=== PATIENT | female | born 1950 | race Caucasian/White ===

== ENCOUNTER 2017-01-02 10:08 | Emergency (ER) | payer OTHER ==
[~2017-01-02] VITALS: Ht 162.6 cm; Wt 92.5 kg
[~2017-01-02 10:08] MED LIST: ACET500C5 PO; AMLO2.5T78 PO; ASPI-535; ATOR20TA38 PO; AZIT250T94; BENA40TA41; CALC1TAB79 PO; CIPR500T4 PO; DICL50TA11; DOCU-144 PO; ESOM40CA; FER325 PO; GABA100C14 PO; HYDR-902 PO; HYDR1CAP; INSU100C SC; INSU100V18; LANS30CA PO; LANT3I SC; LEVEM; LEVO125T75 PO; LEVO137T7; LOSA100T7 PO; MECL12.574 PO; METF500T4; MTF1000T PO; OMEP10CA4; SIMV40TA3; SITA50TA2 PO; TOFA5TAB PO; TRAM50TA2 PO
[2017-01-02 10:19] VITALS: Ht 162.6 cm; Wt 92.5 kg
[2017-01-02] MEDS ORDERED: morphine 4 MG/ML VIAL IV STA (11:15)
[2017-01-02] MEDS ORDERED: ONDANSETRON 4 MG INJ IV STA (11:15)
[2017-01-02] MEDS ORDERED: SOD CHLORIDE 0.9% 1,000 ML IV STA (11:15)
--- NOTE | 2017-01-02 11:30 | ERA ---
ER Documentation Chief Complaint Date/Time DATE: 01/02/17 TIME: 11:27 Chief Complaint RUQ PAIN RADIATES TO THE BACK X 3 DAYS HPI This is a 66-year-old female with prior history of cholecystectomy, prior liver tumor removal several years ago who presents with right upper quadrant abdominal pain for 3 days. The patient describes abdominal pain that slightly radiates to the right flank for approximately 3 days. No fevers or chills, no chest pain, no pleuritic pain, no dysuria urgency or frequency. She denies any cough. ROS All systems reviewed and are negative except as per history of present illness. Medications Home Meds Active Scripts Dicyclomine Hcl* (Bentyl*) 10 Mg Capsule, 10 MG PO QID Y for abdominal cramping , #30 CAP Prov:JOSE CURRY MD 01/02/17 Ondansetron (Ondansetron Odt) 4 Mg Tab.rapdis, 4 MG PO Q6H Y for NAUSEA AND/OR VOMITING, #10 TAB Prov:JOSE CURRY MD 01/02/17 Docusate Sodium* (Colace*) 100 Mg Capsule, 100 MG PO TID, #30 CAP Prov:LINDY CASTRO MD 06/20/16 Ciprofloxacin Hcl* (Ciprofloxacin Hcl*) 500 Mg Tablet, 500 MG PO BID for 7 Days , TAB Prov:LINDY CASTRO MD 06/20/16 Hydrocodone/Acetaminophen ([place] 10-325 Tablet) 1 Each Tablet, 1 TAB PO Q6H Y for PAIN, #16 TAB Prov:LINDY CASTRO MD 06/20/16 Reported Medications Calcium Carbonate/Vitamin D3 (Oysco 500+D Tablet) 1 Each Tablet, 1 EACH PO DAILY , TAB 06/20/16 Ferrous Sulfate* (Ferrous Sulfate*) 325 Mg Tabec, 325 MG PO DAILY, TAB 06/20/16 Tofacitinib Citrate (XELJANZ) 5 Mg Tablet, 5 MG PO BID, TAB 06/20/16 Atorvastatin Calcium* (Atorvastatin Calcium*) 20 Mg Tablet, 20 MG PO QHS, #30 TAB 06/20/16 Sitagliptin* (Januvia*) 50 Mg Tablet, 50 MG PO DAILY, #30 TAB 06/20/16 Gabapentin* (Gabapentin*) 100 Mg Capsule, 100 MG PO TID, #90 CAP 06/20/16 Losartan Potassium* (Losartan Potassium*) 100 Mg Tablet, 100 MG PO DAILY, TAB 02/08/15 Lansoprazole* (Lansoprazole*) 30 Mg Capsule.dr, 30 MG PO DAILY, CAP 02/08/15 Amlodipine Besylate* (Amlodipine Besylate*) 2.5 Mg Tablet, 2.5 MG PO DAILY, TAB 02/08/15 Levothyroxine Sodium* (Levothyroxine Sodium*) 125 Mcg Tablet, 125 MCG PO AC BREAKFAST, TAB 02/08/15 Insulin Glargine* (Lantus*) 100 Unit/Ml Soln, 44 UNIT SC HS, EA 02/08/15 Insulin Lispro (Humalog) 100 U/Ml Cartridge, 15 UNITS SC TID, EA BEFORE MEALS 02/08/15 Metformin* (Glucophage*) 1,000 Mg Tablet, 1000 MG PO BID, TAB 02/08/15 Discontinued Scripts Acetaminophen* (Tylophen*) 500 Mg Capsule, 1 CAP PO Q6H Y for PAIN AND OR ELEVATED TEMP, #30 CAP Prov:THEODORA MCCLELLAN PA-C 08/25/16 Meclizine Hcl* (Antivert*) 12.5 Mg Tab, 12.5 MG PO Q6H Y for DIZZINESS, #20 TAB Prov:THEODORA MCCLELLAN PA-C 08/25/16 Tramadol HCl (Tramadol HCl) 50 Mg Tablet, 50 MG PO Q4 Y for PAIN, #30 TAB Prov:THEODORA MCCLELLAN PA-C 08/25/16 Tramadol HCl (Tramadol HCl) 50 Mg Tablet, 50 MG PO Q4 Y for PAIN, #20 TAB Prov:GE CHEW 07/07/16 Allergies Allergies: Coded Allergies: ibuprofen (Verified Allergy, Mild, RASH, 01/02/17) PMhx/Soc History of Surgery: Yes (GALLBLADDER REMOVED, HYSTERECTOMY, , THYROID REMOVED) Anesthesia Reaction: No Hx Neurological Disorder: No Hx Respiratory Disorders: No Hx Cardiac Disorders: Yes (HTN, HIGH CHOLESTEROL) Hx Psychiatric Problems: No Hx Miscellaneous Medical Probl: Yes (HYPOTHYROID, DM, TUMOR REMOVED FROM LIVER) Hx Alcohol Use: No Hx Substance Use: No Hx Tobacco Use: No FmHx Family History: No diabetes Physical Exam Vitals Vital Signs Date Time Temp Pulse Resp B/P Pulse Ox O2 Delivery O2 Flow Rate FiO2 01/02/17 12:37 98.1 74 16 122/65 97 01/02/17 10:19 98.1 78 19 147/66 97 Physical Exam General: Well developed, well nourished, no acute distress Head: Normocephalic, atraumatic. Eyes: Pupils equally reactive, EOM intact ENT: Moist mucous membranes Neck: Supple, no lymphadenopathy Respiratory: Lungs clear bilaterally, no distress Cardiovascular: RRR, no murmurs, rubs, or gallops Abdominal: Soft, tenderness to the epigastrium and right upper quadrant without rebound or guarding : Deferred MSK: No edema, no unilateral swelling, 5/5 strength Neurologic: Alert and oriented, moving all extremities, normal speech, no focal weakness, no cerebellar signs Skin: No rash Psych: Normal mood Result Diagram: 01/02/17 1125 01/02/17 1125 Results 24 hrs Laboratory Tests Test 01/02/17 11:25 White Blood Count 8.710^3/ul Red Blood Count 4.1810^6/ul Hemoglobin 12.6g/dl Hematocrit 39.5% Mean Corpuscular Volume 94.5fl Mean Corpuscular Hemoglobin 30.1pg Mean Corpuscular Hemoglobin Concent 31.9g/dl Red Cell Distribution Width 14.6% Platelet Count 21694^3/UL Mean Platelet Volume 11.7fl Neutrophils % 72.1% Lymphocytes % 20.2% Monocytes % 6.2% Eosinophils % 0.8% Basophils % 0.1% Nucleated Red Blood Cells % 0.0/100WBC Neutrophils # 6.310^3/ul Lymphocytes # 1.810^3/ul Monocytes # 0.510^3/ul Eosinophils # 0.110^3/ul Basophils # 0.010^3/ul Nucleated Red Blood Cells # 0.010^3/ul Prothrombin Time 12.3Sec Prothrombin Time Ratio 1.0 INR International Normalized Ratio 0.91 Activated Partial Thromboplast Time 24.5Sec Urine Color LT. YELLOW Urine Clarity CLEAR Urine pH 5.5 Urine Specific [place] 1.025 Urine Ketones NEGATIVE Urine Nitrite NEGATIVE Urine Bilirubin NEGATIVE Urine Urobilinogen 0.2 E.U./dL Urine Leukocyte Esterase NEGATIVE Urine Hemoglobin NEGATIVE Urine Glucose NEGATIVE% Urine Total Protein NEGATIVE Sodium Level 143mmol/L Potassium Level 4.0mmol/L Chloride Level 100mmol/L Carbon Dioxide Level 27mmol/L Anion Gap 20 Blood Urea Nitrogen 21mg/dl Creatinine 0.89mg/dl Glucose Level 219mg/dl Calcium Level 9.3mg/dl Total Bilirubin 0.4mg/dl Direct Bilirubin 0.00mg/dl Indirect Bilirubin 0.4mg/dl Aspartate Amino Transf (AST/SGOT) 36IU/L Alanine Aminotransferase (ALT/SGPT) 52IU/L Alkaline Phosphatase 73IU/L Total Protein 8.1g/dl Albumin 4.3g/dl Globulin 3.80g/dl Albumin/Globulin Ratio 1.13 Lipase 159U/L Current Medications Medications (Trade) Dose Ordered Sig/Aisha Route PRN Reason Start Time Stop Time Status Last Admin Dose Admin Sodium Chloride (NS) 1,000 ml @ 1,000 mls/hr Q1H STAT IV 01/02/17 11:15 01/02/17 12:14 DC 01/02/17 11:40 Morphine Sulfate (morphine) 4 mg ONCE STAT IV 01/02/17 11:15 01/02/17 11:17 DC 01/02/17 11:40 Ondansetron HCl (Zofran Inj) 4 mg ONCE STAT IV 01/02/17 11:15 01/02/17 11:17 DC 01/02/17 11:39 Procedures/MDM EKG, MONITORS, & DIAGNOSTIC IMAGING: CT abdomen and pelvis: IMPRESSION: 1. No acute abnormality or findings to suggest a source of the patient's symptoms. 2. Sigmoid and descending colonic diverticulosis. 3. Similar postoperative change at the posterior right hepatic lobe with benign hepatic cysts. 4. Multivessel coronary artery calcifications and atherosclerotic changes of the aorta. 5. Mild cardiomegaly, unchanged. RPTAT: HLBP EKG: I reviewed and interpreted a 12-lead EKG. Rhythm: Normal sinus rhythm Ectopy: None Intervals: No abnormalities ST segments: No elevations or depressions T waves: No contiguous inversions Chest x-ray: I reviewed and interpreted a 1 view of the chest Mediastinum: No enlargement Cardiac silhouette: No cardiomegaly Airspace: Clear lung logan bilaterally without evidence of pneumothorax Bones: No evidence of fracture LAB INTERPRETATION: No leukocytosis MEDICAL DECISION MAKING: The patient presents with abdominal pain to the right upper quadrant. She has a history of cholecystectomy. She is at risk for bowel obstruction. No skin changes to suggest shingles. Consider possible lumbar radiculopathy. No signs or symptoms concerning for cardiopulmonary process such as pneumonia, pneumothorax, pulmonary embolism. The patient will benefit from CT imaging of the abdomen and pelvis. ER COURSE: The patient was given pain medications. Laboratory testing and diagnostic imaging is unrevealing. Unclear etiology at this point. No evidence of cardiopulmonary process. The patient is safe for discharge. I kept the patient and/or family informed of laboratory and diagnostic imaging results throughout the emergency room course. DISPOSITION PLAN: We discussed follow up with the patient's primary care doctor within 24 to 48 hours as needed. We also discussed return to the emergency room for worsening symptoms or worsening condition. Outpatient referral: [None required] Discharge Medications: Alfredo Crocker Departure Diagnosis: Primary Impression: Abdominal pain Qualified Code: R10.13 - Epigastric pain Condition: Stable JOSE CURRY MD Jan 02, 2017 11:30
[2017-01-02 11:46] LABS: ADD SCAN DIFF NO
[2017-01-02 11:57] LABS: BASOPHILS % 0.1 % (0.0-2.0); EOSINOPHILS # 0.1 10^3/ul (0.0-0.5); EOSINOPHILS % 0.8 % (0.0-7.0); HEMATOCRIT 39.5 % (37.0-47.0); HEMOGLOBIN 12.6 g/dl (12.0-16.0); LYMPHOCYTES # 1.8 10^3/ul (0.8-2.9); LYMPHOCYTES % 20.2 % (15.0-51.0); MEAN CORPUSCULAR HEMOGLOBIN 30.1 pg (29.0-33.0); MEAN CORPUSCULAR HGB CONC 31.9 g/dl (32.0-37.0); MEAN CORPUSCULAR VOLUME 94.5 fl (82.0-101.0); MEAN PLATELET VOLUME 11.7 fl (7.4-10.4); MONOCYTE # 0.5 10^3/ul (0.3-0.9); MONOCYTES % 6.2 % (0.0-11.0); NEUTROPHIL # 6.3 10^3/ul (1.6-7.5); NEUTROPHILS % 72.1 % (39.0-77.0); PLATELET COUNT 142 10^3/UL (140-415); RED BLOOD COUNT 4.18 10^6/ul (4.20-5.40); RED CELL DISTRIBUTION WIDTH 14.6 % (11.5-14.5); WHITE BLOOD COUNT 8.7 10^3/ul (4.8-10.8)
[2017-01-02 12:00] LABS: INR 0.91; PROTIME 12.3 Sec (12.2-14.2)
[2017-01-02 12:01] LABS: ADD UMIC NO; PARTIAL THROMBOPLASTIN TIME 24.5 Sec (25.0-35.0); UR BILIRUBIN (Dip) NEGATIVE (NEGATIVE); UR BLOOD (Dip) NEGATIVE (NEGATIVE); UR CLARITY CLEAR (CLEAR); UR COLOR LT. YELLOW (YELLOW); UR GLUCOSE (Dip) NEGATIVE (NEGATIVE); UR KETONES (Dip) NEGATIVE (NEGATIVE); UR LEUKOCYTE ESTERASE (Dip) NEGATIVE (NEGATIVE); UR NITRITE (Dip) NEGATIVE (NEGATIVE); UR TOTAL PROTEIN (Dip) NEGATIVE (NEGATIVE); UR UROBILINOGEN (Dip) 0.2 E.U./dL (0.1-1.0)
[2017-01-02 12:04] LABS: ALBUMIN 4.3 g/dl (3.3-4.9)
--- NOTE | 2017-01-02 12:06 | RADRPT ---
PROCEDURE: XR Chest. CLINICAL INDICATION: Abdominal pain. TECHNIQUE: Single AP portable chest COMPARISON: 02/08/2015 Chest x-ray FINDINGS: The cardiomediastinal silhouette is within normal limits of size . Surgical clips in the region of t he thyroid bed. Chronic elevation of the right hemidiaphragm. . Atherosclerotic calcification of t he aorta. The lungs are clear without pleural effusion or focal consolidation. No pneumothorax. Th e osseous structures and soft tissues are unremarkable. IMPRESSION: 1. No evidence for active cardiopulmonary disease. RPTAT:AAJJ Miguel Viveros Physician Date Time Electronically viewed and signed by Physician Eric on 01/02/2017 12:06 VARINDER/
[2017-01-02 12:07] LABS: ALBUMIN/GLOBULIN RATIO 1.13; BILIRUBIN,INDIRECT 0.4 mg/dl (0-1.1); BILIRUBIN,TOTAL 0.4 mg/dl (0.2-1.3); CREATININE 0.89 mg/dl (0.44-1.00); TOTAL PROTEIN 8.1 g/dl (6.1-8.1)
[2017-01-02 12:08] LABS: CALCIUM 9.3 mg/dl (8.4-10.2)
--- NOTE | 2017-01-02 13:41 | RADRPT ---
PROCEDURE: CT abdomen and pelvis without contrast. CLINICAL INDICATION: Abdominal pain. TECHNIQUE: CT of the abdomen and pelvis without contrast was performed on a multidetector high-resolution CT [facility]. Coronal and sagittal reformatted images were obtained from the axial source images. Images we re reviewed on a high-resolution PACS workstation. The total exam CTDI equals 21.9 mGy and the total exam DLP equals 1283.89 mGy-cm. One or more of the following dose reduction techniques were used: - Automated exposure control. - Adjustment of the mA and/or kV according to patient size. - Use of iterative reconstruction technique. COMPARISON: CT dated 08/25/2016. FINDINGS: Visualized lower thorax: There is dependent change in the lung bases, which are otherwise clear. The visualized heart is mild ly enlarged. Hepatobiliary system and spleen: There is similar postoperative change at the posterior margin of the right hepatic lobe with similar appearance of a cyst at the surgical margin. A sub-centimeter cyst in the medial left hepatic lobe is also unchanged. The liver is otherwise grossly unremarkable. There is no intra or extrahepatic biliary ductal dilatation. The gallbladder is surgically absent. The spleen is grossly unremarkable. The pancreas is grossly unremarkable. Adrenal glands and genitourinary system: The adrenal glands are grossly unremarkable. There is no nephrolithiasis or hydronephrosis. The urin livan bladder is grossly unremarkable. The uterus is surgically absent. The adnexa are grossly unrem arkable pill Gastrointestinal system: The stomach and small bowel are unremarkable. There is no bowel wall thickening or evidence of obstr uction. There is sigmoid and descending colonic diverticulosis without evidence of diverticulitis. T he appendix is in the right lower quadrant and is unremarkable. Peritoneum, vascular, and lymphatics: There is no free intraperitoneal air or free fluid. There is no mesenteric or retroperitoneal adenop athy. There are atherosclerotic changes of the aorta, which is nonaneurysmal. There are coronary art vivian calcifications. Musculoskeletal system: There are no concerning osseous lesions. There is mild to moderate multilevel degenerative spondylos is. IMPRESSION: 1. No acute abnormality or findings to suggest a source of the patient's symptoms. 2. Sigmoid and descending colonic diverticulosis. 3. Similar postoperative change at the posterior right hepatic lobe with benign hepatic cysts. 4. Multivessel coronary artery calcifications and atherosclerotic changes of the aorta. 5. Mild cardiomegaly, unchanged. RPTAT: HLBP .Gregor Cedeno MD, MD Date Time Electronically viewed and signed by .Gregor Cedeno MD, MD on 01/02/2017 13:41 .P/
[2017-01-02] MEDS ORDERED: ONDA4TAB14 PO (14:22)
[2017-01-02] MEDS ORDERED: DICY10CA60 PO (14:22)
[2017-01-02 15:21] VITALS: BP 118/68; PULSE 72; RESP 18; TEMP 98.3
== END 2017-01-02 15:23 | disposition home or self-care (01) ==
LOC: E/R 10:08
DX: R10.11 Right upper quadrant pain (principal); I10 Essential (primary) hypertension; E03.9 Hypothyroidism, unspecified; E11.9 Type 2 diabetes mellitus without complications; Z79.4 Long term (current) use of insulin; Z79.84 Long term (current) use of oral hypoglycemic drugs
CPT/HCPCS: 36415; 71010; 74176; 80053; 81003; 83690; 85025; 85610; 85730; 93005; 96361; 96374; 96375; 99285; J2270; J2405; J7030

== ENCOUNTER 2017-01-20 23:21 | Emergency (ER) | payer OTHER ==
[~2017-01-20] VITALS: Ht 162.6 cm; Wt 93.0 kg
[~2017-01-20 23:21] MED LIST changes: -ACET500C5 PO; -ASPI-535; -AZIT250T94; -BENA40TA41; -DICL50TA11; +DICY10CA60 PO; -ESOM40CA; -HYDR1CAP; -INSU100V18; -LEVEM; -LEVO137T7; -MECL12.574 PO; -METF500T4; -OMEP10CA4; +ONDA4TAB14 PO; -SIMV40TA3; -TRAM50TA2 PO
[2017-01-20 23:24] VITALS: Ht 162.6 cm; Wt 93.0 kg
--- NOTE | 2017-01-21 01:09 | ERA ---
ER Documentation Chief Complaint Date/Time DATE: 01/21/17 TIME: 01:08 Chief Complaint headache and body aches x 1 day HPI The patient is a 76-year-old female, presenting to the ER because of right- sided headache that began about 8 AM yesterday. She has similar symptoms previously, denies fever, chills, neck pain, chest pain, dyspnea. History of chronic abdominal pain, denies diarrhea, constipation, dysuria. She does not smoke or drink Past medical history: Hypothyroidism, diabetes mellitus, hypertension, dyslipidemia, rheumatoid arthritis Past surgical history: Cholecystectomy, hysterectomy, , liver tumor resection ROS All systems reviewed and are negative except as per history of present illness. Medications Home Meds Active Scripts Acetaminophen* (Tylenol*) 325 Mg Tablet, 2 TAB PO Q6 Y for PAIN AND OR ELEVATED TEMP, #20 TAB Prov:PORFIRIO TINAJERO MD 01/21/17 Dicyclomine Hcl* (Bentyl*) 10 Mg Capsule, 10 MG PO QID Y for abdominal cramping , #30 CAP Prov:JOSE CURRY MD 01/02/17 Ondansetron (Ondansetron Odt) 4 Mg Tab.rapdis, 4 MG PO Q6H Y for NAUSEA AND/OR VOMITING, #10 TAB Prov:JOSE CURRY MD 01/02/17 Docusate Sodium* (Colace*) 100 Mg Capsule, 100 MG PO TID, #30 CAP Prov:LINDY CASTRO MD 06/20/16 Ciprofloxacin Hcl* (Ciprofloxacin Hcl*) 500 Mg Tablet, 500 MG PO BID for 7 Days , TAB Prov:LINDY CASTRO MD 06/20/16 Hydrocodone/Acetaminophen ([place] 10-325 Tablet) 1 Each Tablet, 1 TAB PO Q6H Y for PAIN, #16 TAB Prov:LINDY CASTRO MD 06/20/16 Reported Medications Insulin Lispro (Humalog) 100 Unit/1 Ml Cartridge, 20 UNIT SQ TID 01/21/17 Calcium Carbonate/Vitamin D3 ([place] 500+D Tablet) 1 Each Tablet, 1 EACH PO DAILY , TAB 06/20/16 Ferrous Sulfate* (Ferrous Sulfate*) 325 Mg Tabec, 325 MG PO DAILY, TAB 06/20/16 Atorvastatin Calcium* (Atorvastatin Calcium*) 20 Mg Tablet, 20 MG PO QHS, #30 TAB 06/20/16 Sitagliptin* (Januvia*) 50 Mg Tablet, 50 MG PO DAILY, #30 TAB 06/20/16 Gabapentin* (Gabapentin*) 100 Mg Capsule, 100 MG PO TID, #90 CAP 06/20/16 Losartan Potassium* (Losartan Potassium*) 100 Mg Tablet, 100 MG PO DAILY, TAB 02/08/15 Lansoprazole* (Lansoprazole*) 30 Mg Capsule.dr, 30 MG PO DAILY, CAP 02/08/15 Amlodipine Besylate* (Amlodipine Besylate*) 2.5 Mg Tablet, 2.5 MG PO DAILY, TAB 02/08/15 Levothyroxine Sodium* (Levothyroxine Sodium*) 125 Mcg Tablet, 125 MCG PO AC BREAKFAST, TAB 02/08/15 Insulin Glargine* (Lantus*) 100 Unit/Ml Soln, 44 UNIT SC HS, EA 02/08/15 Metformin* (Glucophage*) 1,000 Mg Tablet, 1000 MG PO BID, TAB 02/08/15 Discontinued Reported Medications Tofacitinib Citrate (XELJANZ) 5 Mg Tablet, 5 MG PO BID, TAB 06/20/16 Insulin Lispro (Humalog) 100 U/Ml Cartridge, 15 UNITS SC TID, EA BEFORE MEALS 02/08/15 Allergies Allergies: Coded Allergies: ibuprofen (Verified Allergy, Mild, RASH, 01/02/17) PMhx/Soc History of Surgery: Yes (GALLBLADDER REMOVED, HYSTERECTOMY, , THYROID REMOVED) Anesthesia Reaction: No Hx Neurological Disorder: No Hx Respiratory Disorders: No Hx Cardiac Disorders: Yes (HTN, HIGH CHOLESTEROL) Hx Psychiatric Problems: No Hx Miscellaneous Medical Probl: Yes (HYPOTHYROID, DM, TUMOR REMOVED FROM LIVER , kidney stone.) Hx Alcohol Use: No Hx Substance Use: No Hx Tobacco Use: No Smoking Status: Never smoker Physical Exam Vitals Vital Signs Date Time Temp Pulse Resp B/P Pulse Ox O2 Delivery O2 Flow Rate FiO2 01/21/17 03:50 98.8 94 20 126/77 99 Room Air 01/21/17 01:18 98.8 99 20 127/68 96 Room Air 01/20/17 23:24 98.8 101 20 140/78 98 Physical Exam Const: No acute distress. Head: Atraumatic. Eyes: Normal Conjunctiva. ENT: Normal External Ears, Nose and Mouth. Neck: Full range of motion. No meningismus. Resp: Clear to auscultation bilaterally. Cardio: Regular rate and rhythm, no murmurs. Abd: Soft, non distended, normal bowel sounds, non tender. Skin: No petechiae or rashes. Back: No midline or flank tenderness. Ext: No cyanosis, or edema. Neur: Awake and alert. No focal deficit Psych: Normal Mood and Affect. Result Diagram: 01/21/17 0049 01/21/17 0049 Results 24 hrs Laboratory Tests Test 01/21/17 00:49 01/21/17 01:15 White Blood Count 6.910^3/ul Red Blood Count 4.2810^6/ul Hemoglobin 13.2g/dl Hematocrit 39.3% Mean Corpuscular Volume 91.8fl Mean Corpuscular Hemoglobin 30.8pg Mean Corpuscular Hemoglobin Concent 33.6g/dl Red Cell Distribution Width 14.5% Platelet Count 87663^3/UL Mean Platelet Volume 11.1fl Neutrophils % 82.0% Lymphocytes % 11.5% Monocytes % 5.5% Eosinophils % 0.4% Basophils % 0.0% Nucleated Red Blood Cells % 0.0/100WBC Neutrophils # 5.610^3/ul Lymphocytes # 0.810^3/ul Monocytes # 0.410^3/ul Eosinophils # 0.010^3/ul Basophils # 0.010^3/ul Nucleated Red Blood Cells # 0.010^3/ul Prothrombin Time 13.2Sec Prothrombin Time Ratio 1.0 INR International Normalized Ratio 1.00 Activated Partial Thromboplast Time 25.7Sec Sodium Level 137mmol/L Potassium Level 4.1mmol/L Chloride Level 103mmol/L Carbon Dioxide Level 24mmol/L Anion Gap 14 Blood Urea Nitrogen 17mg/dl Creatinine 0.82mg/dl Glucose Level 165mg/dl Calcium Level 8.5mg/dl Total Bilirubin 0.5mg/dl Direct Bilirubin 0.00mg/dl Indirect Bilirubin 0.5mg/dl Aspartate Amino Transf (AST/SGOT) 44IU/L Alanine Aminotransferase (ALT/SGPT) 62IU/L Alkaline Phosphatase 71IU/L Creatine Kinase 140IU/L Creatine Kinase Index 0.9 Creatinine Kinase MB (Mass) 1.24ng/ml Troponin I < 0.012ng/ml Total Protein 8.1g/dl Albumin 4.2g/dl Globulin 3.90g/dl Albumin/Globulin Ratio 1.07 Triglycerides Level 475mg/dl Cholesterol Level 199mg/dl LDL Cholesterol, Calculated 65mg/dl HDL Cholesterol 39mg/dl Cholesterol/HDL Ratio 5.1RATIO Hemoglobin A1c 8.2% Current Medications Medications (Trade) Dose Ordered Sig/Aisha Route PRN Reason Start Time Stop Time Status Last Admin Dose Admin Acetaminophen/ Hydrocodone Bitart ([place] (5/325)) 1 tab ONCE ONCE PO 01/21/17 02:00 01/21/17 02:01 DC 01/21/17 01:50 Ondansetron HCl (Zofran Odt) 4 mg ONCE STAT ODT 01/21/17 01:42 01/21/17 01:43 DC 01/21/17 01:48 Morphine Sulfate (morphine) 2 mg ONCE ONCE IV 01/21/17 03:00 01/21/17 03:03 DC 01/21/17 03:17 Ondansetron HCl (Zofran Inj) 4 mg ONCE ONCE IV 01/21/17 03:03 01/21/17 03:04 DC 01/21/17 03:16 Procedures/[place] [id number] Radiology Main Line: [phone] DIAGNOSTIC IMAGING REPORT Patient: HERIBERTO SIMMONS : 1950 Age: 66 Sex: F MR #: [id number] DOS: 01/21/17 0038 Ordering MD: PORFIRIO DEL ANGEL PA-C Location: E/R Room/Bed: PROCEDURE: XR Chest. CLINICAL INDICATION: Chest pain. TECHNIQUE: Single frontal view of the chest. COMPARISON: 02/08/2015. FINDINGS: Cardiomegaly. Mild elevation right hemidiaphragm again seen. The lungs are clear. No signs of pleural fluid or pneumothorax are seen. The osseous structures and soft tissues are unremarkable. IMPRESSION: No evidence for active cardiopulmonary disease. RPTAT: UU R Stecher, Physician Date Time Electronically viewed and signed by Physician Jazmin on 01/21/2017 02:19 RS/ CC: PORFIRIO DEL ANGEL PA-C [place] [id number] Radiology Main Line: [phone] DIAGNOSTIC IMAGING REPORT Patient: HERIBERTO SIMMONS : 1950 Age: 66 Sex: F [id number] DOS: 01/21/17 0038 Ordering MD: PORFIRIO DEL ANGEL PA-C Location: E/R Room/Bed: PROCEDURE: CT Brain without contrast CLINICAL INDICATION: Code Stroke. Weakness. Headaches. TECHNIQUE: A CT of the brain was performed on multidetector high-resolution CT scanner utilizing axial sections from the skull base through the vertex without contrast. The scan was reviewed in soft tissue brain and high frequency resolution bone algorithm windows. Images were reviewed on a high- resolution PACS workstation. The exam CTDI = 43.05 mGy and the DLP = 720.23 mGy- cm. COMPARISON: None available FINDINGS: The ventricles and sulci are symmetric and normal in size and morphology. There is no evidence of intracranial hemorrhage, mass effect, edema or midline shift. No abnormal intra-axial or extra-axial fluid collections are seen. The density of the brain is normal and the black/white matter differentiation is well preserved. Brainstem and posterior fossa structures are equally unremarkable. The osseous structures and visualized paranasal sinuses are remarkable for dense polypoidal mucosal thickening within the maxillary sinuses bilaterally. The surrounding soft tissue scalp and bony calvarium are intact and normal. IMPRESSION: 1. Unremarkable CT brain. 2. No evidence for acute ischemia. Call report was made and findings discussed with Porfirio Tinajero in [facility] at 1:11 a.m. on 01/21/2017. RPTAT: AAEE .Shayan Molina MD, MD Date Time Electronically viewed and signed by .Shayan Molina MD, MD on 01/21/2017 01:14 .B/ CC: PORFIRIO DEL ANGLE PA-C EKG: Read by emergency physician Rate/Rhythm: Normal Sinus Rhythm 97 beats/min QRS, ST, T-waves: No ST elevation, no T inversion Impression: Normal EKG MEDICAL MAKING DECISION: The patient is a 36-year-old female, presenting with acute cephalgia of unclear etiology. She was treated with [place] 5 mg and morphine 2 mg IV for pain, Zofran for nausea with good response to The differential diagnoses considered include but are not limited to subarachnoid hemorrhage, occult trauma, CVA, meningitis, encephalitis, hypertension, tension, migraine, cluster, narcotic withdrawal, cervical spine disease. Departure Diagnosis: Primary Impression: Headache Condition: Good Comments She was discharged with Tylenol I discussed the findings with the patient. I advised the patient to follow-up with the primary physician in about 1-2 days, sooner if needed and return if any concern. PORFIRIO TINAJERO MD January 21, 2017 01:09
--- NOTE | 2017-01-21 01:14 | RADRPT ---
PROCEDURE: CT Brain without contrast CLINICAL INDICATION: Code Stroke. Weakness. Headaches. TECHNIQUE: A CT of the brain was performed on multidetector high-resolution CT scanner utilizing a xial sections from the skull base through the vertex without contrast. The scan was reviewed in sof t tissue brain and high frequency resolution bone algorithm windows. Images were reviewed on a high -resolution PACS workstation. The exam CTDI = 43.05 mGy and the DLP = 720.23 mGy-cm. COMPARISON: None available FINDINGS: The ventricles and sulci are symmetric and normal in size and morphology. There is no evidence of i ntracranial hemorrhage, mass effect, edema or midline shift. No abnormal intra-axial or extra-axial fluid collections are seen. The density of the brain is normal and the black/white matter different iation is well preserved. Brainstem and posterior fossa structures are equally unremarkable. The o sseous structures and visualized paranasal sinuses are remarkable for dense polypoidal mucosal thick ening within the maxillary sinuses bilaterally. The surrounding soft tissue scalp and bony calvariu m are intact and normal. IMPRESSION: 1. Unremarkable CT brain. 2. No evidence for acute ischemia. Call report was made and findings discussed with Porfirio Page in [facility] at 1:11 a.m. on 01/21/2017. RPTAT: AAEE .Shayan Molina MD, Date Time Electronically viewed and signed by .Shayan Molina MD, on 01/21/2017 01:14 .B/
[2017-01-21] MEDS ORDERED: INSU100C SQ (01:23)
[2017-01-21 01:24] LABS: ADD SCAN DIFF NO
[2017-01-21 01:26] LABS: EOSINOPHILS % 0.4 % (0.0-7.0); HEMATOCRIT 39.3 % (37.0-47.0); HEMOGLOBIN 13.2 g/dl (12.0-16.0); LYMPHOCYTES # 0.8 10^3/ul (0.8-2.9); LYMPHOCYTES % 11.5 % (15.0-51.0); MEAN CORPUSCULAR HEMOGLOBIN 30.8 pg (29.0-33.0); MEAN CORPUSCULAR HGB CONC 33.6 g/dl (32.0-37.0); MEAN CORPUSCULAR VOLUME 91.8 fl (82.0-101.0); MEAN PLATELET VOLUME 11.1 fl (7.4-10.4); MONOCYTE # 0.4 10^3/ul (0.3-0.9); MONOCYTES % 5.5 % (0.0-11.0); NEUTROPHIL # 5.6 10^3/ul (1.6-7.5); PLATELET COUNT 146 10^3/UL (140-415); RED BLOOD COUNT 4.28 10^6/ul (4.20-5.40); RED CELL DISTRIBUTION WIDTH 14.5 % (11.5-14.5); WHITE BLOOD COUNT 6.9 10^3/ul (4.8-10.8)
[2017-01-21] MEDS ORDERED: ONDANSETRON (ODT) 4 MG TAB ODT STA (01:42)
[2017-01-21 01:53] LABS: PARTIAL THROMBOPLASTIN TIME 25.7 Sec (25.0-35.0); PROTIME 13.2 Sec (12.2-14.2)
[2017-01-21 02:00] LABS: ALANINE AMINOTRANSFERASE 62 IU/L (13-69); ALBUMIN 4.2 g/dl (3.3-4.9); ALBUMIN/GLOBULIN RATIO 1.07; ALKALINE PHOSPHATASE 71 IU/L (42-121); ANION GAP 14 (8-16); ASPARTATE AMINO TRANSFERASE 44 IU/L (15-46); BILIRUBIN,INDIRECT 0.5 mg/dl (0-1.1); BILIRUBIN,TOTAL 0.5 mg/dl (0.2-1.3); BLOOD UREA NITROGEN 17 mg/dl (7-20); CALCIUM 8.5 mg/dl (8.4-10.2); CARBON DIOXIDE 24 mmol/L (21-31); CHLORIDE 103 mmol/L (97-110); CHOL/HDL RATIO 5.1 RATIO; CHOLESTEROL 199 mg/dl (100-200); CREATINE KINASE 140 IU/L (23-200); CREATININE 0.82 mg/dl (0.44-1.00); GLUCOSE 165 mg/dl (70-220); HDL CHOLESTEROL 39 mg/dl (35-98); POTASSIUM 4.1 mmol/L (3.5-5.1); SODIUM 137 mmol/L (135-144); TOTAL PROTEIN 8.1 g/dl (6.1-8.1); TRIGLYCERIDES 475 mg/dl (0-149)
[2017-01-21] MEDS ORDERED: HYDROCODONE/APAP (5/325) TAB PO ONE (02:00)
[2017-01-21 02:10] LABS: CK-MB 1.24 ng/ml (0.0-2.4)
[2017-01-21 02:12] LABS: TROPONIN-I < 0.012 ng/ml (0.00-0.12)
--- NOTE | 2017-01-21 02:19 | RADRPT ---
PROCEDURE: XR Chest. CLINICAL INDICATION: Chest pain. TECHNIQUE: Single frontal view of the chest. COMPARISON: 02/08/2015. FINDINGS: Cardiomegaly. Mild elevation right hemidiaphragm again seen. The lungs are clear. No signs of pleur al fluid or pneumothorax are seen. The osseous structures and soft tissues are unremarkable. IMPRESSION: No evidence for active cardiopulmonary disease. RPTAT: UU Physician Jazmin Date Time Electronically viewed and signed by Howard De Leon Physician on 01/21/2017 02:19 RS/
[2017-01-21] MEDS ORDERED: morphine 2 MG INJ IV ONE (03:00)
[2017-01-21] MEDS ORDERED: ONDANSETRON 4 MG INJ IV ONE (03:03)
[2017-01-21] MEDS ORDERED: ACET325T33 PO (04:30)
[2017-01-21 04:55] VITALS: BP 131/75; PULSE 95; RESP 20; TEMP 98.8
== END 2017-01-21 04:31 | disposition home or self-care (01) ==
LOC: E/R 23:21
DX: R51 Headache (principal); I10 Essential (primary) hypertension; E03.9 Hypothyroidism, unspecified; E11.9 Type 2 diabetes mellitus without complications; R07.9 Chest pain, unspecified; Z79.84 Long term (current) use of oral hypoglycemic drugs; Z79.4 Long term (current) use of insulin
CPT/HCPCS: 80053; 80061; 82550; 82553; 83036; 84484; 85025; 85610; 85730; 96374; 96375; 99285; J2270; J2405; 70450; 71010; 93005

== ENCOUNTER 2017-12-07 14:57 | Emergency (ER) | END 2017-12-07 17:15 | disposition home or self-care (01) ==